=== PATIENT | male | born 1960 | race Caucasian/White ===

== ENCOUNTER 2017-10-22 18:43 | Emergency (ER) | payer OTHER ==
[2017-10-22] MEDS ORDERED: NACL 0.9% 1000 ML 1,000 ML IV ONE ×2 (21:13→22:32)
[2017-10-22 21:23] LABS: Basophils % (Auto) 0.2 % (0.0-1.8); Eosinophils # (Auto) 0.1 K/mm3 (0.0-0.4); Eosinophils % (Auto) 1.4 % (0.0-4.3); Hematocrit 44.7 % (35.5-45.6); Hemoglobin 15.4 gm/dl (11.8-15.2); Lymphocytes # (Auto) 0.8 K/mm3 (1.2-5.4); Lymphocytes % (Auto) 11.3 % (13.4-35.0); Mean Corpuscular HGB Conc 35 % (32-34); Mean Corpuscular Hemoglobin 33 pg (28-32); Mean Corpuscular Volume 97 fl (84-94); Monocytes % (Auto) 14.8 % (0.0-7.3); Platelet Count 179 K/mm3 (140-440); Red Blood Count 4.61 M/mm3 (3.65-5.03); Red Cell Distribution Width 13.3 % (13.2-15.2)
--- NOTE | 2017-10-22 21:23 | Emergency Department Report ---
History of Present Illness - General Chief Complaint: Overdose Stated Complaint: OVERDOSE Time Seen by Provider: 10/22/17 21:11 Source: patient, EMS Mode of arrival: Stretcher Limitations: No Limitations - History of Present Illness Initial Comments: 57 yo male that says he came to the hospital because of HTN. PER EMS, THE PT TOOK UNKNOWN AMOUNT OF XANAX AND POSSIBLE OTHER MEDICATION. HE HAS BEEN DRINKING AND DONT REMEMBER WHAT WAS TAKEN -: Sudden Intent: unwilling to say - Related Data Home Medications Medication Instructions Recorded Confirmed Last Taken B-Complex with Vitamin C [Vitamin 1 each PO DAILY 10/22/17 10/22/17 Unknown B-Complex with Vit C] Hydrochlorothiazide [HCTZ] 25 mg PO QDAY 10/22/17 10/22/17 Unknown Lisinopril [Zestril TAB] 40 mg PO DAILY 10/22/17 10/22/17 Unknown Potassium Chloride [Klor-Con M10] 10 meq PO DAILY 10/22/17 10/22/17 Unknown Xanax TAB 1 mg PO TID PRN 10/22/17 10/22/17 Unknown amLODIPine [Norvasc] 10 mg PO DAILY 10/22/17 10/22/17 Unknown Allergies Allergy/AdvReac Type Severity Reaction Status Date / Time No Known Allergies Allergy Unverified 10/22/17 20:33 ED Review of Systems ROS: Stated complaint: OVERDOSE Other details as noted in HPI Constitutional: denies: chills, fever Eyes: denies: eye pain, eye discharge, vision change ENT: other (DRY M OUTH). denies: ear pain, throat pain Respiratory: denies: cough, shortness of breath, wheezing Cardiovascular: denies: chest pain, palpitations Endocrine: no symptoms reported Gastrointestinal: denies: abdominal pain, nausea, diarrhea Genitourinary: denies: urgency, dysuria Musculoskeletal: denies: back pain, joint swelling, arthralgia Skin: denies: rash, lesions Neurological: denies: headache, weakness, paresthesias Psychiatric: denies: anxiety, depression Hematological/Lymphatic: denies: easy bleeding, easy bruising ED Past Medical Hx - Past Medical History Hx Hypertension: Yes Hx Psychiatric Treatment: Yes (depression, anxiety) Additional medical history: ALCHOLISM - Social History Smoking Status: Current Every Day Smoker Substance Use Type: Alcohol - Medications Home Medications: Home Medications Medication Instructions Recorded Confirmed Last Taken Type B-Complex with Vitamin C [Vitamin 1 each PO DAILY 10/22/17 10/22/17 Unknown History B-Complex with Vit C] Hydrochlorothiazide [HCTZ] 25 mg PO QDAY 10/22/17 10/22/17 Unknown History Lisinopril [Zestril TAB] 40 mg PO DAILY 10/22/17 10/22/17 Unknown History Potassium Chloride [Klor-Con M10] 10 meq PO DAILY 10/22/17 10/22/17 Unknown History Xanax TAB 1 mg PO TID PRN 10/22/17 10/22/17 Unknown History amLODIPine [Norvasc] 10 mg PO DAILY 10/22/17 10/22/17 Unknown History ED Physical Exam - General Limitations: No Limitations General appearance: alert, in no apparent distress - Head Head exam: Present: atraumatic, normocephalic - Eye Eye exam: Present: normal appearance, EOMI - ENT ENT exam: Present: mucous membranes dry - Neck Neck exam: Present: normal inspection - Respiratory Respiratory exam: Present: normal lung sounds bilaterally. Absent: respiratory distress - Cardiovascular Cardiovascular Exam: Present: regular rate, normal rhythm. Absent: systolic murmur, diastolic murmur, rubs, gallop - GI/Abdominal GI/Abdominal exam: Present: soft, normal bowel sounds - Rectal Rectal exam: Present: deferred - Extremities Exam Extremities exam: Present: normal inspection, full ROM - Back Exam Back exam: Present: normal inspection, full ROM - Neurological Exam Neurological exam: Present: alert, oriented X3 - Psychiatric Psychiatric exam: Present: depressed, flat affect - Skin Skin exam: Present: warm, dry, intact, normal color. Absent: rash ED Course Vital Signs 10/22/17 10/22/17 20:38 22:32 Temperature 98.2 F Pulse Rate 71 78 Respiratory 18 15 Rate Blood Pressure 119/74 O2 Sat by Pulse 97 Oximetry ED Medical Decision Making - Lab Data Result diagrams: 10/22/17 20:49 10/22/17 20:49 - EKG Data -: EKG Interpreted by Nh EKG shows normal: sinus rhythm, axis, intervals, QRS complexes, ST-T waves - EKG Data Interpretation: LVH 10/22/17 22:50 EKG #2: 45 SINUS FLOR, NORMAL AXIS,LVH - Radiology Data Radiology results: report reviewed (CXR:HYPOINFLATION,BILATERAL ATELECTASIS CT HEAD:NEGATIVE FOR ACUTE), image reviewed (CXR:TORTUOUS AORTA CT HEAD; NEGATIVE FOR ACUTE) - Medical Decision Making PT REFUSED HIS ORAL POTASSIUM THUS IV GIVEN INSTEAD. PT WILL BE ADMITTED AND TRANSFERRED TO A PSYCHIATRIC FACILITY Critical care attestation.: If time is entered above; I have spent that time in minutes in the direct care of this critically ill patient, excluding procedure time. ED Disposition Clinical Impression: Hypokalemia, Dehydration, Hyponatremia Altered mental status Qualifiers: Altered mental status type: unspecified Qualified Code(s): R41.82 - Altered mental status, unspecified Disposition: DC/TX-65 PSY HOSP/PSY UNIT Is pt being admited?: Yes Does the pt Need Aspirin: No Condition: Stable Referrals: JAELYN CUBA MD [Primary Care Provider] - 3-5 Days Time of Disposition: 06:19
[2017-10-22 21:35] LABS: BUN/Creatinine Ratio 23; Blood Urea Nitrogen 21 mg/dL (9-20); Calcium 9.3 mg/dL (8.4-10.2); Hemolysis Index 11
--- NOTE | 2017-10-22 21:57 | XRay Report ---
FINAL REPORT PROCEDURE: XR CHEST 1V AP TECHNIQUE: Chest radiograph anteroposterior view. CPT 16017 HISTORY: sob COMPARISON: No prior studies are available for comparison. FINDINGS: Lungs are hypoventilated. Heart size is upper normal. Pulmonary vasculature not distended. Linear band of atelectasis visualized in the left lung base. A small amount of patchy alveolar density also seen in the right lung base. No acute bony abnormalities are identified. IMPRESSION: Lungs are hypoventilated. Atelectasis suspected bilaterally as described. No other abnormality is seen..
--- NOTE | 2017-10-22 22:34 | Cat Scan Report ---
FINAL REPORT PROCEDURE: CT head without contrast. TECHNIQUE: Computerized tomography of the head was performed without contrast material. HISTORY: Altered mental status. COMPARISON: No prior studies are available for comparison. FINDINGS: The ventricles are normal in size. There are no mass lesions. There is no intracranial hemorrhage. There is a small craniectomy in the left temporal parietal region. There is a small metallic object in the craniectomy defect which causes streak artifact. There is probably a small focal area of encephalomalacia involving the lateral portion of the left temporal lobe near the site of surgery. The [place] matter and white matter otherwise appear normal. The mastoid air cells and paranasal sinuses are clear. IMPRESSION: No evidence of acute disease.
[2017-10-22] MEDS ORDERED: KCL 10MEQ/100ML 10 MEQ/100 ML BAG IV ONE (22:56)
[2017-10-22] MEDS ORDERED: K-DUR PO ONE (22:57)
[2017-10-22] MEDS ORDERED: ZOFRAN IV ONE (22:57)
[2017-10-23 07:04] LABS: Amphetamine Screen,Urine PRESUMPTIVE NEGATIVE; Cannabinoid Screen,Urine PRESUMPTIVE NEGATIVE; Cocaine Screen,Urine PRESUMPTIVE NEGATIVE; Methadone Screen,Urine PRESUMPTIVE NEGATIVE; Opiate Screen,Urine PRESUMPTIVE NEGATIVE
[2017-10-23 07:06] LABS: Bacteria,Urine 1+ /HPF (Negative); Bilirubin,Urine NEG (Negative); Blood,Urine NEG (Negative); Calcium Oxalate Crystals,Urine FEW; Color,Urine Yellow (Yellow); Hyaline Casts,Urine 196 /LPF; Mucus,Urine 3+ /HPF; Nitrite,Urine NEG (Negative); Protein,Urine <15 mg/dL mg/dL (Negative)
[2017-10-23 07:26] LABS: Benzodiazepines Screen,Urine PRESUMPTIVE POSITIVE
--- NOTE | 2017-10-23 12:15 | Consultation ---
History of Present Illness - Reason for Consult Consult date: 10/23/17 Reason for consult: Mental Health Evaluation Requesting physician: AZAR BAILEY - Chief Complaint Chief complaint: "What" - History of Present Psychiatric Illness 57 y.o AA male presenting to [facility] for possible overdose. Today patient is calm during the assessment. He would not elaborate why he was brought to [facility]. When asked about a possible overdose, the patient became quiet. He stated that he took Xanax for anxiety when asked about that medication. Patient stated that he "drink a lot" before coming to the hospital. The patient's thought content is disorganized. He could not confirm or deny SI's. The patient is not a good historian at this time. Patient was in restraints prior to the assessment. Medications and Allergies Allergies Allergy/AdvReac Type Severity Reaction Status Date / Time No Known Allergies Allergy Unverified 10/22/17 20:33 Home Medications Medication Instructions Recorded Confirmed Last Taken Type B-Complex with Vitamin C [Vitamin 1 each PO DAILY 10/22/17 10/22/17 Unknown History B-Complex with Vit C] Hydrochlorothiazide [HCTZ] 25 mg PO QDAY 10/22/17 10/22/17 Unknown History Lisinopril [Zestril TAB] 40 mg PO DAILY 10/22/17 10/22/17 Unknown History Potassium Chloride [Klor-Con M10] 10 meq PO DAILY 10/22/17 10/22/17 Unknown History Xanax TAB 1 mg PO TID PRN 10/22/17 10/22/17 Unknown History amLODIPine [Norvasc] 10 mg PO DAILY 10/22/17 10/22/17 Unknown History Past psychiatric history - Past Medical History Past Medical History: No medical history, other Past Surgical History: No surgical history - past Psychiatric treatment and history psychiatric treatment history: Patient denies a psy hx. Denies a fam psy hx. - Social History Social history: Lives alone Mental Status Exam - Vital signs Last Vital Signs Temp 98.2 F 10/22/17 20:38 Pulse 74 10/23/17 06:30 Resp 16 10/23/17 06:50 BP 124/87 10/23/17 06:45 Pulse Ox 97 10/23/17 06:50 - Exam Narrative exam: MSE: Appearance: calm Behavior: good eye contact Speech: regular rate and tone Mood: "okay" withdrawn Affect: congruent to mood Thought Process: circumstantial Thought Content: denies HI's and AVH's, disorganized Motor Activity: ambulatory Cognition: A/O x3 Insight: poor Judgment: poor Results Result Diagrams: 10/22/17 20:49 10/22/17 20:49 Abnormal lab results 10/22/17 10/22/17 10/22/17 Range/Units 20:49 20:49 20:56 Hgb 15.4 H (11.8-15.2) gm/dl MCV 97 H (84-94) fl MCH 33 H (28-32) pg MCHC 35 H (32-34) % Lymph % (Auto) 11.3 L (13.4-35.0) % [place] % (Auto) 14.8 H (0.0-7.3) % Lymph # 0.8 L (1.2-5.4) K/mm3 [place] # 1.0 H (0.0-0.8) K/mm3 Seg Neutrophils % 72.3 H (40.0-70.0) % Sodium 135 L (137-145) mmol/L Potassium 3.2 L (3.6-5.0) mmol/L Chloride 89.1 L (98-107) mmol/L BUN 21 H (9-20) mg/dL Urine WBC (Auto) (0.0-6.0) /HPF Salicylates < 0.3 L (2.8-20.0) mg/dL 10/23/17 Range/Units 06:39 Hgb (11.8-15.2) gm/dl MCV (84-94) fl MCH (28-32) pg MCHC (32-34) % Lymph % (Auto) (13.4-35.0) % [place] % (Auto) (0.0-7.3) % Lymph # (1.2-5.4) K/mm3 [place] # (0.0-0.8) K/mm3 Seg Neutrophils % (40.0-70.0) % Sodium (137-145) mmol/L Potassium (3.6-5.0) mmol/L Chloride (98-107) mmol/L BUN (9-20) mg/dL Urine WBC (Auto) 19.0 H (0.0-6.0) /HPF Salicylates (2.8-20.0) mg/dL All other labs normal. Assessment and Plan Assessment and plan: Impression: Unspecified Mood DO possible psy features. Today patient is calm during the assessment. Patient positive for benzos. UDS negative and Alcohol serum WNL. DDx: R/O MDD, R/O Bipolar DO, R/O Alcohol Use DO Recommendation/Plan: Continue 1013 with placement to [facility] today.
[2017-10-23 17:36] VITALS: BP 120/82
== END 2017-10-23 14:12 ==
LOC: EEVIPCON 18:43 → ED 18:43
DX: E87.6 Hypokalemia (principal); E86.0 Dehydration; E87.1 Hypo-osmolality and hyponatremia; R41.82 Altered mental status, unspecified; F17.210 Nicotine dependence, cigarettes, uncomplicated
CPT/HCPCS: 36415; 70450; 71010; 80048; 80307; 81001; 85025; 96361; 96365; 96375; 99285; G0480; J2405; J3480; J7030; 80320

== ENCOUNTER 2017-11-10 19:52 | Emergency (ER) | payer OTHER ==
--- NOTE | 2017-11-10 21:33 | Emergency Department Report ---
ED Psych HPI - General Chief Complaint: Psych Stated Complaint: SUICIDAL IDEATIONS Time Seen by Provider: 11/10/17 20:37 Source: patient, EMS Mode of arrival: Stretcher - History of Present Illness Initial Comments: Patient is a 57-year-old male who is presenting with suicidal ideations. Patient has been drinking tonight and was come in stating that he is having thoughts of killing himself. He has a plan to jump off of a building. Patient very reluctant to give any additional history. Patient denies any drug use or auditory visual hallucinations. Patient has history of high blood pressure high cholesterol. Patient states he came here instead of trying to hurt himself and he denies doing any thing harmful to himself before arrival Associated Psychiatric Symptoms: depression Context: recent alcohol abuse Associated Symptoms: denies: confusion, headache, shortness of breath, nausea, vomiting, syncope, insomnia If Self Harm: admits thoughts of, has plan - Related Data Home Medications Medication Instructions Recorded Confirmed Last Taken B-Complex with Vitamin C [Vitamin 1 each PO DAILY 10/22/17 10/22/17 Unknown B-Complex with Vit C] Hydrochlorothiazide [HCTZ] 25 mg PO QDAY 10/22/17 10/22/17 Unknown Lisinopril [Zestril TAB] 40 mg PO DAILY 10/22/17 10/22/17 Unknown Potassium Chloride [Klor-Con M10] 10 meq PO DAILY 10/22/17 10/22/17 Unknown Xanax TAB 1 mg PO TID PRN 10/22/17 10/22/17 Unknown amLODIPine [Norvasc] 10 mg PO DAILY 10/22/17 10/22/17 Unknown Allergies Allergy/AdvReac Type Severity Reaction Status Date / Time No Known Allergies Allergy Unverified 10/22/17 20:33 ED Review of Systems ROS: Stated complaint: SUICIDAL IDEATIONS Other details as noted in HPI Comment: All other systems reviewed and negative ED Past Medical Hx - Past Medical History Hx Hypertension: Yes Hx Psychiatric Treatment: Yes (depression, anxiety) Additional medical history: ALCHOLISM - Social History Smoking Status: Current Every Day Smoker Substance Use Type: None - Medications Home Medications: Home Medications Medication Instructions Recorded Confirmed Last Taken Type B-Complex with Vitamin C [Vitamin 1 each PO DAILY 10/22/17 10/22/17 Unknown History B-Complex with Vit C] Hydrochlorothiazide [HCTZ] 25 mg PO QDAY 10/22/17 10/22/17 Unknown History Lisinopril [Zestril TAB] 40 mg PO DAILY 10/22/17 10/22/17 Unknown History Potassium Chloride [Klor-Con M10] 10 meq PO DAILY 10/22/17 10/22/17 Unknown History Xanax TAB 1 mg PO TID PRN 10/22/17 10/22/17 Unknown History amLODIPine [Norvasc] 10 mg PO DAILY 10/22/17 10/22/17 Unknown History ED Physical Exam - General Limitations: No Limitations General appearance: alert, in no apparent distress - Head Head exam: Present: atraumatic, normocephalic - Eye Eye exam: Present: normal appearance - ENT ENT exam: Present: mucous membranes moist - Neck Neck exam: Present: normal inspection - Respiratory Respiratory exam: Present: normal lung sounds bilaterally. Absent: respiratory distress - Cardiovascular Cardiovascular Exam: Present: regular rate, normal rhythm. Absent: systolic murmur, diastolic murmur, rubs, gallop - GI/Abdominal GI/Abdominal exam: Present: soft, normal bowel sounds - Rectal Rectal exam: Present: deferred - Extremities Exam Extremities exam: Present: normal inspection - Back Exam Back exam: Present: normal inspection - Neurological Exam Neurological exam: Present: alert, oriented X3 - Psychiatric Psychiatric exam: Present: normal affect, normal mood, depressed - Skin Skin exam: Present: warm, dry, intact, normal color. Absent: rash ED Course Vital Signs 11/10/17 20:43 Temperature 98.2 F Pulse Rate 93 H Respiratory 16 Rate Blood Pressure 151/74 O2 Sat by Pulse 100 Oximetry - Reevaluation(s) Reevaluation #1: 11/11/17 05:28 Patient's alcohol level was 0.28 signifying intoxication. Patient will most likely have reevaluation of his sciatic status after he is no longer intoxicated. Patient was hydrated serum sodium level did increase to 1:30 and is no longer meeting criteria for admission for hyponatremia. ED Medical Decision Making - Lab Data Result diagrams: 11/10/17 21:26 11/11/17 03:16 Critical care attestation.: If time is entered above; I have spent that time in minutes in the direct care of this critically ill patient, excluding procedure time. ED Disposition Clinical Impression: Hyponatremia Alcohol intoxication Qualifiers: Complication of substance-induced condition: uncomplicated Qualified Code(s): F10.920 - Alcohol use, unspecified with intoxication, uncomplicated Condition: Stable Referrals: JAELYN CUBA MD [Primary Care Provider] - 3-5 Days
[2017-11-10 21:54] LABS: Basophils % (Auto) 0.5 % (0.0-1.8); Eosinophils # (Auto) 0.4 K/mm3 (0.0-0.4); Eosinophils % (Auto) 5.1 % (0.0-4.3); Hematocrit 45.1 % (35.5-45.6); Hemoglobin 15.4 gm/dl (11.8-15.2); Lymphocytes # (Auto) 2.6 K/mm3 (1.2-5.4); Mean Corpuscular HGB Conc 34 % (32-34); Mean Corpuscular Hemoglobin 32 pg (28-32); Mean Corpuscular Volume 95 fl (84-94); Monocytes # (Auto) 0.7 K/mm3 (0.0-0.8); Monocytes % (Auto) 9.7 % (0.0-7.3); Platelet Count 327 K/mm3 (140-440); Red Blood Count 4.76 M/mm3 (3.65-5.03); Red Cell Distribution Width 12.9 % (13.2-15.2)
[2017-11-10 22:30] LABS: BUN/Creatinine Ratio 8; Blood Urea Nitrogen 4 mg/dL (9-20); Calcium 9.2 mg/dL (8.4-10.2); Hemolysis Index 10
[2017-11-10] MEDS ORDERED: NACL 0.9% 1000 ML 1,000 ML IV ONE ×2 (22:39→22:41)
[2017-11-11 04:34] LABS: BUN/Creatinine Ratio 8; Blood Urea Nitrogen 4 mg/dL (9-20); Calcium 7.7 mg/dL (8.4-10.2); Hemolysis Index 14
[2017-11-11] MEDS ORDERED: ATIVAN PO ONE (16:16)
--- NOTE | 2017-11-11 16:27 | Consultation ---
History of Present Illness - Reason for Consult Consult date: 11/11/17 Reason for consult: psychiatric evaluation - Chief Complaint Chief complaint: "I called 911 because I was suicidal." - History of Present Psychiatric Illness Mr. Shoemaker is a 57 year old male seen in the emergency department for psychiatric evaluation. He was intoxicated on arrival and reported suicidal ideation. His EtOH level was 280. He states that he called 911 because he was having suicidal thoughts and anticipated going to [place]. He is upset that he is being held in the ER. He reports depression and suicidal ideation. He reported a plan to jump off of a building. He was at [place] inpatient 3 weeks ago and required detox from alcohol. He states 3 weeks ago was the first time that he sought treatment for mental health and addiction. He made efforts to step down to partial hospitalization treatment at [facility] at [place]. He states that it was a problem getting into it. He later relapsed. He wants to stop drinking. He reports sweating and mild tremors. He also complains of a rash on his neck and believes that his herpes. He states it looks like herpes outbreaks he has had previously. Medications and Allergies Allergies Allergy/AdvReac Type Severity Reaction Status Date / Time No Known Allergies Allergy Unverified 10/22/17 20:33 Home Medications Medication Instructions Recorded Confirmed Last Taken Type B-Complex with Vitamin C [Vitamin 1 each PO DAILY 10/22/17 10/22/17 Unknown History B-Complex with Vit C] Hydrochlorothiazide [HCTZ] 25 mg PO QDAY 10/22/17 10/22/17 Unknown History Lisinopril [Zestril TAB] 40 mg PO DAILY 10/22/17 10/22/17 Unknown History Potassium Chloride [Klor-Con M10] 10 meq PO DAILY 10/22/17 10/22/17 Unknown History Xanax TAB 1 mg PO TID PRN 10/22/17 10/22/17 Unknown History amLODIPine [Norvasc] 10 mg PO DAILY 10/22/17 10/22/17 Unknown History Active Meds: Active Medications Lorazepam (Ativan) 1 mg PO ONCE ONE Stop: 11/11/17 16:17 Past psychiatric history - Past Medical History Past Medical History: hypertension, hyperlipidemia, other (herpes) - past Psychiatric treatment and history psychiatric treatment history: Inpatient treatment 3 weeks ago for detox - Social History Social history: alcohol abuse Mental Status Exam - Vital signs Last Vital Signs Temp 97 F L 11/11/17 09:25 Pulse 86 11/11/17 09:25 Resp 20 11/11/17 09:26 BP 117/84 11/11/17 09:25 Pulse Ox 100 11/10/17 20:43 - Exam Narrative exam: sodium is 130 calcium is 7.7 Orientation: time, place, person Affect: depressed Mood: congruent with affect Thought content: other (suicidal ideation. No homicidal ideation) Thought Process: Intact Perceptions: none Speech: normal rate and pattern Concentration: focused Motor activity: restless, other (mild tremor) Level of consciousness: alert Memory: Intact Sleep Symptoms: Difficulty Falling Asleep Appetite: decreased Interaction: guarded Results Result Diagrams: 11/10/17 21:26 11/11/17 03:16 Abnormal lab results 11/10/17 11/10/17 11/10/17 Range/Units 21:26 21:26 21:26 Hgb 15.4 H (11.8-15.2) gm/dl MCV 95 H (84-94) fl RDW 12.9 L (13.2-15.2) % Lymph % (Auto) 36.0 H (13.4-35.0) % [place] % (Auto) 9.7 H (0.0-7.3) % Eos % (Auto) 5.1 H (0.0-4.3) % Sodium 125 L (137-145) mmol/L Potassium (3.6-5.0) mmol/L Chloride 80.2 L (98-107) mmol/L BUN 4 L (9-20) mg/dL Creatinine 0.5 L (0.8-1.5) mg/dL Calcium (8.4-10.2) mg/dL Salicylates (2.8-20.0) mg/dL Plasma/Serum Alcohol 0.29 H (0-0.07) gm% 11/10/17 11/11/17 11/11/17 Range/Units 21:26 03:16 03:30 Hgb (11.8-15.2) gm/dl MCV (84-94) fl RDW (13.2-15.2) % Lymph % (Auto) (13.4-35.0) % [place] % (Auto) (0.0-7.3) % Eos % (Auto) (0.0-4.3) % Sodium 130 L (137-145) mmol/L Potassium 3.4 L (3.6-5.0) mmol/L Chloride 88.7 L (98-107) mmol/L BUN 4 L (9-20) mg/dL Creatinine 0.5 L (0.8-1.5) mg/dL Calcium 7.7 L D (8.4-10.2) mg/dL Salicylates < 0.3 L (2.8-20.0) mg/dL Plasma/Serum Alcohol 0.28 H (0-0.07) gm% All other labs normal. Assessment and Plan Assessment and plan: Impression: Alcohol use disorder, severe, at high risk for withdrawal. Major depressive disorder. Suicidal ideation present with a plan Recommendation: Continue 1013 and plan for placement in an inpatient facility Patient's medical complaints, such as rash and heartburn were discussed with the nursing staff. Recommend detox for alcohol-This was communicated to staff. Consider an SSRI but will hold off due to electrolyte imbalances. Recommend management of medical conditions and medication reconciliation Ativan 1mg po was ordered as a one time dose for agitation
[2017-11-12 13:15] LABS: BUN/Creatinine Ratio 8; Blood Urea Nitrogen 5 mg/dL (9-20); Hemolysis Index 82
[2017-11-12] MEDS ORDERED: VITAMIN B-1 100 MG, FOLVITE 1 MG, INFUVITE 10 ML in NACL 0.9% 1000 ML 1,000 ML IV ONE (15:00)
--- NOTE | 2017-11-12 16:16 | XRay Report ---
FINAL REPORT EXAM: XR CHEST ROUTINE 2V HISTORY: hypertension TECHNIQUE: Two views of the chest Comparison: 10/22/2017 FINDINGS: Normal heart size. Lungs are clear and well expanded without focal infiltrate or consolidation. There is no effusion. The imaged axial skeleton is unremarkable. IMPRESSION: No acute cardiopulmonary disease.
[2017-11-12 16:32] LABS: Alanine Aminotransferase 20 units/L (7-56); Albumin 4.1 g/dL (3.9-5)
[2017-11-12 16:35] LABS: Bilirubin,Direct < 0.2 mg/dL (0-0.2); Creatine Kinase MB < 1.0 ng/mL (0.0-4.0)
[2017-11-12] MEDS ORDERED: ALUM-MAG HYDROX-SIMETH 200-200-20MG/5ML PO ONE (18:19)
[2017-11-12 19:06] LABS: INR 0.93 (0.87-1.13)
[2017-11-12 19:07] LABS: Partial Thromboplastin Time 33.7 Sec. (24.2-36.6)
--- NOTE | 2017-11-12 22:33 | Progress Note ---
Subjective - Reason for Consult Consult date: 11/12/17 Reason for consult: follow up - Chief Complaint Chief complaint: "I'm not suicidal today" Mr. Shoemaker is a 57 year old male seen in the emergency department for psychiatric evaluation. He was intoxicated on arrival and reported suicidal ideation. His EtOH level was 280. He states that he called 911 because he was having suicidal thoughts and anticipated going to [place]. He reports feeling better today. 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 He is disgruntled with the hours. He was at [place] inpatient 3 weeks ago and required detox from alcohol. He states 3 weeks ago was the first time that he sought treatment for mental health and addiction. He made efforts to step down to partial hospitalization treatment at [facility] at [place]. He states that it was a problem getting into it. He later relapsed. He continues to express a desire to stop drinking. Mental Status Exam - Vital signs Last Vital Signs Temp 98.7 F 11/11/17 22:41 Pulse 82 11/11/17 22:41 Resp 15 11/12/17 14:33 BP 120/72 11/11/17 22:41 Pulse Ox 100 11/12/17 14:33 - Exam Orientation: time, place, person Affect: depressed Mood: congruent with affect Thought content: other (no SI/HI) Thought Process: Intact Perceptions: none Speech: normal rate and pattern Concentration: focused Motor activity: normal Level of consciousness: alert Memory: Intact Sleep Symptoms: Difficulty Falling Asleep Interaction: cooperative Assessment and Plan Impression: Alcohol use disorder. No withdrawals. Major depressive disorder. Suicidal ideation reported the previous day but not today. Recommendation: Continue 1013 and plan for placement in an inpatient facility Patient's medical complaints, such as heartburn were discussed with the nursing staff. Consider an SSRI but will hold off due to electrolyte imbalances. Recommend management of medical conditions and medication reconciliation
[2017-11-13 06:17] LABS: Bilirubin,Urine NEG (Negative); Blood,Urine NEG (Negative); Color,Urine Colorless (Yellow); Nitrite,Urine NEG (Negative); Protein,Urine <15 mg/dL mg/dL (Negative); RBC,Urine < 1.0 /HPF (0.0-6.0); Urobilinogen,Urine < 2.0 mg/dL (<2.0)
[2017-11-13 06:25] LABS: Amphetamine Screen,Urine PRESUMPTIVE NEGATIVE; Benzodiazepines Screen,Urine PRESUMPTIVE NEGATIVE; Cannabinoid Screen,Urine PRESUMPTIVE NEGATIVE; Cocaine Screen,Urine PRESUMPTIVE NEGATIVE; Methadone Screen,Urine PRESUMPTIVE NEGATIVE; Opiate Screen,Urine PRESUMPTIVE NEGATIVE
[2017-11-13 06:35] LABS: WBC,Urine < 1.0 /HPF (0.0-6.0)
[2017-11-13 08:29] VITALS: BP 96/49
[2017-11-13] MEDS ORDERED: VALTREX PO SCH (10:00)
--- NOTE | 2017-11-13 10:25 | Progress Note ---
Subjective - Reason for Consult Consult date: 11/13/17 Reason for consult: Psyhchiatry Follow-up - Chief Complaint Chief complaint: "I'm okay" Mr. Shoemaker is a 57 year old male seen in the emergency department for psychiatric evaluation. Today the patient is calm and cooperative during the assessment. 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 He stated that his alcohol intake increased over the past year because of life stressors. He stated over the past year he has felt withdrawn and hopeless with thoughts of suicide. He stated that he drink (etoh) to self medicate to help with his depression. He denies SI/HI's and AVH's. Mental Status Exam - Vital signs Last Vital Signs Temp 98.4 F 11/13/17 08:28 Pulse 62 11/13/17 08:28 Resp 16 11/13/17 08:28 BP 96/49 11/13/17 08:28 Pulse Ox 99 11/13/17 08:28 - Exam Narrative exam: MSE: Appearance: calm, cooperative Behavior:fair eye contact Speech: regular rate and low tone Mood: "okay" Affect: congruent to mood Thought Process: circumstantial Thought Content: denies SI/HI's and AVH's Motor Activity: ambulatory Cognition: A/O x 3 Insight: fair Judgment: fair Assessment and Plan Impression: MDD. Alcohol Use DO. Today the patient is calm and cooperative during the assessment. NA 136 11/13/2017. DDx: R/O Bipolar DO Recommendation: Continue 1013 with placement to [facility]. Patient has rash lesions on his neck. He stated having a hx of herpes, last outbreak 6 yrs ago. His assigned RN and ER physician was informed about the patient's herpes hx. Order BMP.
[2017-11-13 11:42] LABS: BUN/Creatinine Ratio 7; Blood Urea Nitrogen 4 mg/dL (9-20); Calcium 9.3 mg/dL (8.4-10.2); Hemolysis Index 8
== END 2017-11-13 13:16 ==
LOC: EEVIPCON 19:52 → ED 19:52
DX: F10.20 Alcohol dependence, uncomplicated (principal); Y90.8 Blood alcohol level of 240 mg/100 ml or more; F32.9 Major depressive disorder, single episode, unspecified; G47.8 Other sleep disorders; Z79.899 Other long term (current) drug therapy
CPT/HCPCS: 36415; 71046; 80048; 80074; 80307; 81001; 82150; 82550; 82553; 83735; 83880; 85025; 85610; 85730; 96361; 96365; 96366; 99285; G0480; J3411; J7030; 80320

== ENCOUNTER 2017-11-13 19:13 | Emergency (ER) | payer OTHER ==
[2017-11-13] MEDS ORDERED: VITAMIN B-1 100 MG, FOLVITE 1 MG, INFUVITE 10 ML in NACL 0.9% 1000 ML 1,000 ML IV ONE (20:08)
[2017-11-13] MEDS ORDERED: ATIVAN IV ONE (20:12)
--- NOTE | 2017-11-13 20:19 | Emergency Department Report ---
ED Seizure HPI - General Chief Complaint: Seizure Stated Complaint: SEIZURE Source: patient, EMS, old records reviewed Mode of arrival: Ambulatory Limitations: Altered Mental Status - History of Present Illness Initial Comments: 57-year-old male with a past medical history hypertension, depression, anxiety, and alcoholism presents to the hospital from psychiatric [facility] with a seizure. Patient is currently they are on a 1013 for suicidal ideation and alcohol detox. Patient just was admitted there after discharge from the ER here at 1:15 PM today. Patient had been in the ER since November 10 he presented with acute alcohol intoxication, hyponatremia, and suicidal thoughts. Patient received normal saline with improvement hyponatremia, he receives a banana bag yesterday, he was started on Valtrex for herpetic like rash today, patient's last dose of Ativan on record was 1 mg on November 11 and patient has not had any benzodiazepines since. No reports of previous seizure disorder. Patient is alert but still confused. Patient denies previous history of seizures but has had a history of alcohol withdrawal symptoms. Patient denies daily alcohol use prior to his admission to the hospital but there is documentation of alcohol abuse by previous providers. - Related Data Home Medications Medication Instructions Recorded Confirmed Last Taken B-Complex with Vitamin C [Vitamin 1 each PO DAILY 10/22/17 11/12/17 Unknown B-Complex with Vit C] Hydrochlorothiazide [HCTZ] 25 mg PO QDAY 10/22/17 11/12/17 Unknown Lisinopril [Zestril TAB] 40 mg PO DAILY 10/22/17 11/12/17 Unknown Potassium Chloride [Klor-Con M10] 10 meq PO DAILY 10/22/17 11/12/17 Unknown Xanax TAB 1 mg PO TID PRN 10/22/17 11/12/17 Unknown amLODIPine [Norvasc] 10 mg PO DAILY 10/22/17 11/12/17 Unknown Previous Rx's Medication Instructions Recorded Last Taken Type levETIRAcetam [Keppra TAB] 500 mg PO BID #60 tablet 11/13/17 Unknown Rx Allergies Allergy/AdvReac Type Severity Reaction Status Date / Time No Known Allergies Allergy Verified 11/13/17 19:58 ED Review of Systems ROS: Stated complaint: SEIZURE Other details as noted in HPI Other: Constitutional: No fevers chills Eyes: No eye pain visual changes ENT: No ear pain or throat pain Neck: Denies pain Respiratory: Denies cough wheezing shortness of breath Cardiovascular: Denies chest pain, palpitations, syncope GI: Denies abdominal pain, nausea, vomiting, diarrhea : Denies dysuria Musculoskeletal: Denies back pain, joint swelling Skin: Denies rash, lesions, erythema Neurologic: Denies headache, numbness, weakness Psychiatric: Patient is on a 1013 for recently expressed suicidal ideation ED Past Medical Hx - Past Medical History Previous Medical History?: Yes Hx Hypertension: Yes Hx Psychiatric Treatment: Yes (depression, anxiety, SI) Additional medical history: ALCHOLISM - Surgical History Past Surgical History?: No - Social History Smoking Status: Current Every Day Smoker Substance Use Type: Alcohol - Medications Home Medications: Home Medications Medication Instructions Recorded Confirmed Last Taken Type B-Complex with Vitamin C [Vitamin 1 each PO DAILY 10/22/17 11/12/17 Unknown History B-Complex with Vit C] Hydrochlorothiazide [HCTZ] 25 mg PO QDAY 10/22/17 11/12/17 Unknown History Lisinopril [Zestril TAB] 40 mg PO DAILY 10/22/17 11/12/17 Unknown History Potassium Chloride [Klor-Con M10] 10 meq PO DAILY 10/22/17 11/12/17 Unknown History Xanax TAB 1 mg PO TID PRN 10/22/17 11/12/17 Unknown History amLODIPine [Norvasc] 10 mg PO DAILY 10/22/17 11/12/17 Unknown History levETIRAcetam [Keppra TAB] 500 mg PO BID #60 tablet 11/13/17 Unknown Rx ED Physical Exam - General Limitations: Altered Mental Status - Other Other exam information: General: No limitations, patient is alert in no acute distress Head exam: Atraumatic, normocephalic Eyes exam: Normal appearance, pupils equal reactive to light, extraocular movements intact ENT: Moist mucous membrane, normal oropharynx Neck exam: Normal inspection, full range of motion, no meningismus nontender Respiratory exam: Clear to auscultation bilateral, no wheezes, rales, crackles Cardiovascular: Normal rate and rhythm, normal heart sounds Abdomen: Soft, nondistended, and nontender, with normal bowel sounds, no rebound, or guarding Extremity: Full range of motion normal inspection no deformity Back: Normal Inspection, full range of motion, no tenderness Neurologic: Alert, oriented x3, cranial nerves intact, no motor or sensory deficit Psychiatric: normal affect, normal mood Skin: Warm, dry, intact ED Course Vital Signs 11/13/17 11/13/17 19:54 20:05 Pulse Rate 96 H Respiratory 18 18 Rate Blood Pressure 151/86 O2 Sat by Pulse 97 98 Oximetry - Reevaluation(s) Reevaluation #1: 11/13/17 23:24 Patient is stable. No further seizure activity ED Medical Decision Making - Lab Data Result diagrams: 11/13/17 20:30 11/13/17 20:30 Lab Results 11/13/17 11/13/17 11/13/17 Range/Units 20:30 20:30 20:30 WBC 8.8 (4.5-11.0) K/mm3 RBC 4.53 (3.65-5.03) M/mm3 Hgb 14.7 (11.8-15.2) gm/dl Hct 43.4 (35.5-45.6) % MCV 96 H (84-94) fl MCH 33 H (28-32) pg MCHC 34 (32-34) % RDW 12.7 L (13.2-15.2) % Plt Count 261 (140-440) K/mm3 Sodium 137 (137-145) mmol/L Potassium 3.6 (3.6-5.0) mmol/L Chloride 94.9 L (98-107) mmol/L Carbon Dioxide 29 (22-30) mmol/L Anion Gap 17 mmol/L BUN 7 L (9-20) mg/dL Creatinine 0.7 L (0.8-1.5) mg/dL Estimated GFR > 60 ml/min BUN/Creatinine Ratio 10 % Glucose 126 H (75-100) mg/dL Calcium 9.7 (8.4-10.2) mg/dL Magnesium 2.10 (1.7-2.3) mg/dL Total Creatine Kinase (55-170) units/L Plasma/Serum Alcohol (0-0.07) gm% 11/13/17 11/13/17 Range/Units 20:30 20:30 WBC (4.5-11.0) K/mm3 RBC (3.65-5.03) M/mm3 Hgb (11.8-15.2) gm/dl Hct (35.5-45.6) % MCV (84-94) fl MCH (28-32) pg MCHC (32-34) % RDW (13.2-15.2) % Plt Count (140-440) K/mm3 Sodium (137-145) mmol/L Potassium (3.6-5.0) mmol/L Chloride (98-107) mmol/L Carbon Dioxide (22-30) mmol/L Anion Gap mmol/L BUN (9-20) mg/dL Creatinine (0.8-1.5) mg/dL Estimated GFR ml/min BUN/Creatinine Ratio % Glucose (75-100) mg/dL Calcium (8.4-10.2) mg/dL Magnesium (1.7-2.3) mg/dL Total Creatine Kinase 378 H (55-170) units/L Plasma/Serum Alcohol < 0.01 (0-0.07) gm% - Radiology Data Radiology results: report reviewed CT head: Stable exam compared to 10/22/2017. No acute findings. Postsurgical changes left temporal region. Small old area of encephalomalacia lateral aspect of temporal lobe. 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 Mild degenerative disc disease. Atherosclerosis of the carotid arteries - Medical Decision Making New-onset seizure Likely secondary to alcohol withdrawal Electrolytes within normal limits Patient presented with acute alcohol intoxication to the ED on the Patient received 1 dose of Ativan 1 mg by mouth on the Patient also was exhibiting intermittent tremors while in the ED as per provider documentation and patient has a history of alcohol withdrawal tremors. Ativan 1 mg IV provided today Patient also has findings of CT of previous intracranial surgery puts patient at risk for seizure disorder therefore Keppra provided and will be continued until further work by neurology Patient will be discharged back to [facility] for further psychiatric management and alcohol detox - Differential Diagnosis new-onset seizure, ICH, intracranial mass, alcohol withdrawal Critical Care Time: No Critical care attestation.: If time is entered above; I have spent that time in minutes in the direct care of this critically ill patient, excluding procedure time. ED Disposition Clinical Impression: Seizure, Alcohol dependence Disposition: DC-01 TO HOME OR SELFCARE Is pt being admited?: No Does the pt Need Aspirin: No Condition: Stable Instructions: Alcohol Withdrawal (ED), New-Onset Seizure in Adults (ED) Additional Instructions: It is likely that your seizure was due to alcohol withdrawal given your recent heavy alcohol use and abrupt discontinuation. This is treated with Ativan or Librium and can be managed by a psychiatric facility. Your CAT scan reveals previous head trauma/postsurgical treatment which places you at risk for primary seizure disorder. You have been prescribed Keppra for seizure control but will need further follow-up with a neurologist to determine if this should be continued. Prescriptions: levETIRAcetam [Keppra TAB] 500 mg PO BID #60 tablet Referrals: KAMAR BERMEO MD [Staff Physician] - 3-5 Days (neurologist ) JAELYN CUBA MD [Primary Care Provider] - 3-5 Days (primary care doctor ) Time of Disposition: 23:29
--- NOTE | 2017-11-13 20:33 | Cat Scan Report ---
FINAL REPORT PROCEDURE: CT HEAD/BRAIN WO CON TECHNIQUE: Computerized tomography of the head was performed without contrast material. HISTORY: seizure head injury COMPARISON: A prior CT scan of the brain 10/22/2017 FINDINGS: There is been previous craniotomy left temporal region. Small metallic density is seen at the craniotomy site. The bone flap does not appear to be in place. This is unchanged from the prior study. There appears to be subtle decreased density in the adjacent left temporal lobe consistent with a small area of encephalomalacia which appears stable. No acute intracranial abnormalities are identified. The ventricles are normal size and are midline. No abnormal extra-axial fluid collections or masses are identified. Small old lacunar infarct again seen laterally in the left basal ganglia which is unchanged. IMPRESSION: Stable exam. No acute intracranial abnormalities are identified. Postsurgical changes left temporal region as described. Small old area of encephalomalacia lateral aspect left temporal lobe. 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
--- NOTE | 2017-11-13 20:42 | Cat Scan Report ---
FINAL REPORT PROCEDURE: CT CERVICAL SPINE WO CON TECHNIQUE: Computerized tomography of the cervical spine was performed from the skull base to T1 without contrast material. HISTORY: seizure head injury COMPARISON: No prior studies are available for comparison. FINDINGS: No fracture or subluxation is seen. The prevertebral soft tissues appear normal. Posterior elements are intact. Small central disc bulges are present at C3-C4 and the C4-C5 level. There is also mild diffuse posterior disc bulge at the C5-C6 level. These obscure portions of the anterior epidural space without definite cord compression. Calcifications are seen in the f[place]aro of the carotid arteries indicating atherosclerotic disease. IMPRESSION: No evidence of fracture or subluxation. Mild degenerative disc disease as described.. Atherosclerosis coronary arteries.
[2017-11-13 20:50] LABS: Hematocrit 43.4 % (35.5-45.6); Hemoglobin 14.7 gm/dl (11.8-15.2); Mean Corpuscular HGB Conc 34 % (32-34); Mean Corpuscular Hemoglobin 33 pg (28-32); Mean Corpuscular Volume 96 fl (84-94); Platelet Count 261 K/mm3 (140-440); Red Blood Count 4.53 M/mm3 (3.65-5.03); Red Cell Distribution Width 12.7 % (13.2-15.2)
[2017-11-13 20:59] LABS: BUN/Creatinine Ratio 10; Blood Urea Nitrogen 7 mg/dL (9-20); Calcium 9.7 mg/dL (8.4-10.2); Hemolysis Index 7
[2017-11-13] MEDS ORDERED: KEPPRA 1,000 MG/NS 0.75% 100ML 1,000 MG/100 ML BAG IV ONE (21:44)
[2017-11-13 22:58] LABS: Amphetamine Screen,Urine PRESUMPTIVE NEGATIVE; Benzodiazepines Screen,Urine PRESUMPTIVE NEGATIVE; Cannabinoid Screen,Urine PRESUMPTIVE NEGATIVE; Cocaine Screen,Urine PRESUMPTIVE NEGATIVE; Methadone Screen,Urine PRESUMPTIVE NEGATIVE; Opiate Screen,Urine PRESUMPTIVE NEGATIVE
[2017-11-14 02:17] VITALS: BP 151/84
== END 2017-11-14 00:14 | disposition home or self-care (01) ==
LOC: ED 19:13
DX: R56.9 Unspecified convulsions (principal); F10.220 Alcohol dependence with intoxication, uncomplicated; I10 Essential (primary) hypertension; F32.9 Major depressive disorder, single episode, unspecified; F41.9 Anxiety disorder, unspecified; F17.200 Nicotine dependence, unspecified, uncomplicated
CPT/HCPCS: 36415; 70450; 72125; 80048; 80307; 82550; 83735; 85027; 96365; 96366; 96375; 99284; G0480; J1953; J2060; J3411; J7030; 80320

== ENCOUNTER 2017-11-14 11:55 | Emergency (ER) | payer OTHER ==
--- NOTE | 2017-11-14 14:47 | Emergency Department Report ---
ED Psych HPI - General Chief Complaint: Psych Stated Complaint: ALCOHOL WITHDRAWAL Source: patient, EMS Mode of arrival: Stretcher - History of Present Illness Initial Comments: Mr Shoemaker was sent from [facility] for evaluation for potential alcohol withdrawal. Mr Shoemaker was able to give a full hx. He stated that he fell last night. He was startled while smoking outside. Staff was concerned that he had a seizure. He denies seizure. He denies hx of delirium tremens. He denies hallucinations. I spoke with psychiatrist at [facility] who was concerned about hyponatremia, confusion and possible hallucinations. - Related Data Home Medications Medication Instructions Recorded Confirmed Last Taken B-Complex with Vitamin C [Vitamin 1 each PO DAILY 10/22/17 11/12/17 Unknown B-Complex with Vit C] Hydrochlorothiazide [HCTZ] 25 mg PO QDAY 10/22/17 11/12/17 Unknown Lisinopril [Zestril TAB] 40 mg PO DAILY 10/22/17 11/12/17 Unknown Potassium Chloride [Klor-Con M10] 10 meq PO DAILY 10/22/17 11/12/17 Unknown Xanax TAB 1 mg PO TID PRN 10/22/17 11/12/17 Unknown amLODIPine [Norvasc] 10 mg PO DAILY 10/22/17 11/12/17 Unknown Previous Rx's Medication Instructions Recorded Last Taken Type levETIRAcetam [Keppra TAB] 500 mg PO BID #60 tablet 11/13/17 Unknown Rx Allergies Allergy/AdvReac Type Severity Reaction Status Date / Time No Known Allergies Allergy Verified 11/13/17 19:58 ED Review of Systems ROS: Stated complaint: ALCOHOL WITHDRAWAL Other details as noted in HPI Constitutional: denies: chills, malaise Respiratory: denies: cough Cardiovascular: denies: chest pain ED Past Medical Hx - Past Medical History Hx Hypertension: Yes Hx Psychiatric Treatment: Yes (depression, anxiety, SI) Additional medical history: ALCHOLISM - Social History Smoking Status: Current Every Day Smoker Substance Use Type: Alcohol - Medications Home Medications: Home Medications Medication Instructions Recorded Confirmed Last Taken Type B-Complex with Vitamin C [Vitamin 1 each PO DAILY 10/22/17 11/12/17 Unknown History B-Complex with Vit C] Hydrochlorothiazide [HCTZ] 25 mg PO QDAY 10/22/17 11/12/17 Unknown History Lisinopril [Zestril TAB] 40 mg PO DAILY 10/22/17 11/12/17 Unknown History Potassium Chloride [Klor-Con M10] 10 meq PO DAILY 10/22/17 11/12/17 Unknown History Xanax TAB 1 mg PO TID PRN 10/22/17 11/12/17 Unknown History amLODIPine [Norvasc] 10 mg PO DAILY 10/22/17 11/12/17 Unknown History levETIRAcetam [Keppra TAB] 500 mg PO BID #60 tablet 11/13/17 Unknown Rx ED Physical Exam - General Limitations: No Limitations General appearance: alert, in no apparent distress - Head Head exam: Present: atraumatic, normocephalic - Eye Eye exam: Present: normal appearance - ENT ENT exam: Present: normal exam, normal orophraynx, mucous membranes moist - Neck Neck exam: Present: normal inspection - Respiratory Respiratory exam: Present: normal lung sounds bilaterally. Absent: respiratory distress, wheezes, rales, rhonchi - Cardiovascular Cardiovascular Exam: Present: regular rate, normal rhythm, normal heart sounds. Absent: bradycardia, tachycardia, irregular rhythm, systolic murmur, diastolic murmur, rubs, gallop - GI/Abdominal GI/Abdominal exam: Present: soft, normal bowel sounds. Absent: distended, tenderness, guarding, rebound, rigid - Rectal Rectal exam: Present: deferred - Extremities Exam Extremities exam: Present: normal inspection. Absent: pedal edema - Back Exam Back exam: Present: normal inspection - Neurological Exam Neurological exam: Present: alert, oriented X3 - Psychiatric Psychiatric exam: Present: normal affect (mr. Shoemaker is insightful with intact judgment), normal mood. Absent: depressed, agitated, anxious, flat affect, manic, homicidal ideation, suicidal ideation - Skin Skin exam: Present: warm, dry, intact, normal color. Absent: rash ED Medical Decision Making - Lab Data Result diagrams: 11/14/17 15:22 11/14/17 15:22 Laboratory Results - last 24 hr 11/14/17 11/14/17 11/14/17 15:22 15:22 Unknown WBC 9.4 RBC 4.53 Hgb 14.7 Hct 43.8 MCV 97 H MCH 32 MCHC 34 RDW 12.6 L Plt Count 252 Lymph % (Auto) 15.3 [place] % (Auto) 11.5 H Eos % (Auto) 2.0 Baso % (Auto) 0.7 Lymph # 1.4 [place] # 1.1 H Eos # 0.2 Baso # 0.1 Seg Neutrophils % 70.5 H Seg Neutrophils # 6.6 Sodium 140 Potassium 3.7 Chloride 98.3 Carbon Dioxide 26 Anion Gap 19 BUN 6 L Creatinine 0.6 L Estimated GFR > 60 BUN/Creatinine Ratio 10 Glucose 94 Calcium 9.5 Urine Color Yellow Urine Turbidity Clear Urine pH 6.0 Ur Specific [place] 1.011 Urine Protein <15 mg/dl Urine Glucose (UA) Neg Urine Ketones Neg Urine Blood Neg Urine Nitrite Neg Urine Bilirubin Neg Urine Urobilinogen 2.0 Ur Leukocyte Esterase Neg Urine WBC (Auto) < 1.0 Urine RBC (Auto) 1.0 Urine Bacteria (Auto) 1+ - Medical Decision Making Mr. Shoemaker does not have any signs of alcohol withdrawal which was a concern of the psychiatrist at [facility]. Dr. Krause, our hospitalist, evaluated patient. He agreed that patient is not exhibiting signs of alcohol withdrawal. Dr. Krause also spoke with psychiatrist at [facility] who understood the plan to return the patient to the facility. I have reviewed the labs which were normal. No hyponatremia. Critical care attestation.: If time is entered above; I have spent that time in minutes in the direct care of this critically ill patient, excluding procedure time. ED Disposition Clinical Impression: Alcohol dependence Disposition: DC/TX-65 PSY HOSP/PSY UNIT Is pt being admited?: No Does the pt Need Aspirin: No Condition: Stable Instructions: Abuse of Alcohol (ED) Referrals: PRIMARY CARE, [Primary Care Provider] - 3-5 Days
[2017-11-14 15:12] LABS: Bacteria,Urine 1+ /HPF (Negative); Bilirubin,Urine NEG (Negative); Blood,Urine NEG (Negative); Color,Urine Yellow (Yellow); Nitrite,Urine NEG (Negative); Protein,Urine <15 mg/dL mg/dL (Negative); WBC,Urine < 1.0 /HPF (0.0-6.0)
[2017-11-14 15:37] LABS: Basophils # (Auto) 0.1 K/mm3 (0.0-0.1); Basophils % (Auto) 0.7 % (0.0-1.8); Eosinophils # (Auto) 0.2 K/mm3 (0.0-0.4); Hematocrit 43.8 % (35.5-45.6); Hemoglobin 14.7 gm/dl (11.8-15.2); Lymphocytes # (Auto) 1.4 K/mm3 (1.2-5.4); Lymphocytes % (Auto) 15.3 % (13.4-35.0); Mean Corpuscular HGB Conc 34 % (32-34); Mean Corpuscular Hemoglobin 32 pg (28-32); Mean Corpuscular Volume 97 fl (84-94); Monocytes # (Auto) 1.1 K/mm3 (0.0-0.8); Monocytes % (Auto) 11.5 % (0.0-7.3); Platelet Count 252 K/mm3 (140-440); Red Blood Count 4.53 M/mm3 (3.65-5.03); Red Cell Distribution Width 12.6 % (13.2-15.2)
[2017-11-14 16:06] LABS: BUN/Creatinine Ratio 10; Blood Urea Nitrogen 6 mg/dL (9-20); Calcium 9.5 mg/dL (8.4-10.2); Hemolysis Index 23
[2017-11-14 19:18] VITALS: BP 142/90
== END 2017-11-14 19:20 ==
LOC: ED 11:55
DX: F10.20 Alcohol dependence, uncomplicated (principal); I10 Essential (primary) hypertension; F32.9 Major depressive disorder, single episode, unspecified; F41.9 Anxiety disorder, unspecified; F17.200 Nicotine dependence, unspecified, uncomplicated
CPT/HCPCS: 36415; 80048; 81001; 85025; 99284; G0480; 80320; 99285